=== PATIENT | female | born 1955 | race Caucasian/White ===

== ENCOUNTER 2021-02-26 14:08 | Emergency (ER) | payer BC ==
--- NOTE | 2021-02-26 14:44 | EDM.PDOC ---
ED HPI GENERAL MEDICAL PROBLEM - General Stated Complaint: STITCHES TORN Time Seen by Provider: 02/26/21 14:30 Source of Information: Reports: Patient History Limitations: Reports: No Limitations - History of Present Illness INITIAL COMMENTS - FREE TEXT/NARRATIVE: This 65 yo female patient reports to the ED due to right knee drainage. The patient is 8 days out from knee replacement surgery. The patient reports she noticed some fluid under the dressing after physical therapy yesterday. The patient called the surgeon (Dr. De La Torre) and was advised to come to the ED to have a dressing change and have the surgical site evaluated. Onset Date: 02/25/21 Duration: Constant Location: Reports: Lower Extremity, Right Quality: Reports: Ache Severity: Mild Improves with: Reports: None Worsens with: Reports: None Context: Reports: Other Right Knee Pain Score (Numeric/FACES): 5 - Related Data Allergies Allergy/AdvReac Type Severity Reaction Status Date / Time No Known Allergies Allergy Verified 02/26/21 14:26 Home Meds: Home Meds Pregabalin [Lyrica] 75 mg PO DAILY 02/26/21 [History] hydroCHLOROthiazide [Hydrochlorothiazide] 25 mg PO DAILY 02/26/21 [History] oxyCODONE HCl [Oxycodone HCl] 5 mg PO ASDIRECTED 02/26/21 [History] Past Medical History Cardiovascular History: Reports: Hypertension - Past Surgical History Musculoskeletal Surgical History: Reports: Knee Replacement Social & Family History - Tobacco Use Tobacco Use Status *Q: Never Tobacco User - Caffeine Use Caffeine Use: Reports: Coffee, Soda - Recreational Drug Use Recreational Drug Use: No ED ROS GENERAL - Review of Systems Review Of Systems: Comprehensive ROS is negative, except as noted in HPI. ED EXAM, SKIN/RASH Exam: See Below Exam Limited By: No Limitations General Appearance: Alert, WD/WN, Mild Distress Eye Exam: Bilateral Eye: EOMI, Normal Inspection, PERRL Ears: Normal External Exam, Hearing Grossly Normal Nose: Normal Inspection, No Blood Throat/Mouth: Normal Lips, Normal Teeth, Normal Voice, No Airway Compromise Head: Atraumatic, Normocephalic Neck: Normal Inspection, Supple, Non-Tender, Full Range of Motion Respiratory/Chest: No Respiratory Distress, Lungs Clear, Normal Breath Sounds Cardiovascular: Normal Peripheral Pulses, Regular Rate, Rhythm (Female) Exam: Deferred Rectal (Female) Exam: Deferred Back Exam: Normal Inspection, Full Range of Motion, NT Extremities: Leg Pain (Right knee pain with drainage under surgical dressing) Neurological: Alert, Oriented, CN II-XII Intact, Abnormal Gait (due to recent knee replacement surgery) Skin: Warm, Dry, Normal Color, No Rash Location, Skin: Lower Extremity, Right, Other (The patient's surgical site appears to be healing well with a small amount of drainage from the proximal wound margin. The surgical wound appears to be healing well with no evidence of separation of the wound margins. ) Associated features: Tenderness Lymphatic: No Adenopathy Course - Vital Signs Last Recorded V/S: Last Vital Signs Temp 98.1 F 02/26/21 14:22 Pulse 91 02/26/21 14:22 Resp 14 02/26/21 14:22 BP 157/86 H 02/26/21 14:22 Pulse Ox 98 02/26/21 14:22 - Re-Assessments/Exams Free Text/Narrative Re-Assessment/Exam: 02/26/21 14:44 Nursing staff changed the dressing after evaluation. Departure - Departure Time of Disposition: 14:44 Disposition: Home, Self-Care 01 Condition: Fair Clinical Impression: Drainage from surgical wound - Discharge Information *PRESCRIPTION DRUG MONITORING PROGRAM REVIEWED*: Not Applicable *COPY OF PRESCRIPTION DRUG MONITORING REPORT IN PATIENT SUKH: Not Applicable Forms: ED Department Discharge Care Plan Goals: The patient and were advised of the examination results during the visit. The dressing was changed over the surgical site during the visit. The patient was encouraged to continue to follow the instructions given by her surgeon. If the patient has any additional symptoms or concerns, the patient should either return to the emergency department or visit her primary care facility. Sepsis Event Note (ED) - Evaluation Sepsis Screening Result: No Definite Risk - Focused Exam Vital Signs: Vital Signs Temp Pulse Resp BP Pulse Ox 02/26/21 14:22 98.1 F 91 14 157/86 H 98
== END 2021-02-26 15:05 | disposition home or self-care (01) ==
LOC: DL.ED 14:08
DX: T81.40XA Infection following a procedure, unspecified, initial encounter (principal)
CPT/HCPCS: 99282; 99283

== ENCOUNTER 2023-12-01 14:27 | Emergency (ER) | payer MEDICARE, BC | END 2023-12-01 16:40 | disposition home or self-care (01) | LOC: DL.ED 14:27 | DX: T81.31XA Disruption of external operation (surgical) wound, not elsewhere classified, initial encounter (principal); I10 Essential (primary) hypertension; Z79.899 Other long term (current) drug therapy | CPT/HCPCS: 87070; 87077; 87186; 87205; 99282; 99284 ==